=== PATIENT | male | born 1985 | race Hispanic/Latino ===

== ENCOUNTER 2019-08-21 12:37 | Emergency (ER) | payer OTHER, SELFPAY ==
[2019-08-21] VITALS (7 sets, daily range): BP systolic 125–159; BP diastolic 70–107; PULSE 60–83; RESP 15–17; TEMP 37.1; O2SAT 96–100
--- NOTE | ~2019-08-21 | CT_ITS ---
EXAMINATION: CT brain wo con DATE: 08/21/2019 13:43 INDICATION: Dizziness. Headache. TECHNIQUE: Computed tomography (CT) of the head was performed without intravenous contrast. The mA wa s adjusted according to patient size. Iterative reconstruction technique was employed. The dose-lengt h product was 681.00 mGy-cm. COMPARISON: None FINDINGS: There is no intracranial hemorrhage, acute infarction, or abnormal intracranial mass lesion . The ventricles are normal in size. The paranasal sinuses are clear. The mastoid air cells are jim l. The orbits are normal. IMPRESSION: 1. Normal brain. Reviewed, dictated and finalized at location A. IMPRESSION: 1. Normal brain.
--- NOTE | 2019-08-21 13:18 | ECG_ITS ---
Measurements Intervals [place] Rate: 66 P: 17 [place]: 177 QRS: 39 QRSD: 107 T: 16 QT: 385 QTc: 404 Interpretive Statements SINUS RHYTHM WITH SINUS ARRHYTHMIA BASELINE ARTIFACT- I, III, AVL NORMAL ECG Electronically Signed On 08-21-2019 13:28:29 CDT by Stephane Camargo D.O.
--- NOTE | 2019-08-21 13:22 | ED.DIZZY ---
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 Patient was breaking some large rocks at work today, bent over, and had onset of feeling dizzy and lightheaded. Patient describes spinning sensation and feeling as though his vision was off. Patient reports having an episode approximately a week ago, but not seek medical attention at that time. Patient noted the dizziness seemed worse with his eyes open and if he was standing or turning his head. Patient states if he is sitting still and has his eyes closed he has no symptoms. Patient does complain of an occipital headache. He denies any respiratory symptoms. He does report some nausea with the dizziness but denies any vomiting MD elicited complaint: dizziness Timing: sudden onset Description: sense of movement, room spinning and lightheadedness Context: change in body position and exertion History of similar symptoms: Yes Exacerbating factors: movement/ambulation, keeping eyes open, standing and other (Turning head) Relieving factors: remaining still, rest and keeping eyes closed Associated symptoms: nausea Related Data Allergies Allergy/AdvReac Type Severity Reaction Status Date / Time No Known Allergies Allergy Mild Verified 08/21/19 12:52 Review of Systems Review of Systems: All systems reviewed & are unremarkable except as noted in HPI and below Constitutional: Constitutional: Denies chills and Denies fever(s) Eyes: Eyes: Reports change in vision ENT: Reports vertigo, Reports dizziness, Denies ear discharge, Denies otalgia, Denies nasal congestion, Denies nasal discharge, Reports disequilibrium and Denies sore throat Cardiovascular: Cardiovascular: Denies chest pain Respiratory: Respiratory: Denies cough and Denies dyspnea Gastrointestinal: Gastrointestinal: Denies abdominal pain, Denies diarrhea, Reports nausea and Denies vomiting Neurologic: Reports dizziness, Denies syncope, Reports headache(s) and Denies focal weakness PMFSH Past Medical History Medical History (Updated 08/21/19 @ 15:59 by Dunia Diaz MD) No significant past medical history Surgical History Surgical History (Updated 08/21/19 @ 13:26 by Dunia Diaz MD) No history of previous surgery Social History Social History (Updated 08/21/19 @ 13:26 by Dunia Diaz MD) Smoking status: Never smoker Alcohol intake: current Exam Const: General: cooperative, no acute distress and alert Nutritional Appearance: obese Orientation/consciousness: patient oriented x3 Limitations: no limitations HENMT: Ears: TM's normal bilaterally and EAC's normal Mouth: Yes lip normal and Yes moist mucous membranes Eyes: Conjunctivae: conjunctivae normal Pupils: Equal, round and reactive pupils present EOM: EOMs intact bilaterally and Nystagmus present Resp: Effort & Inspection: normal respiratory effort Auscultation: clear to auscultation bilaterally Cardio: Rate: regular rate Rhythm: regular rhythm GI: GI Palp: Yes Soft to palpation and No Tenderness to palpation present (GI) Auscultation: normal bowel sounds Skin: General skin exam: normal color Neuro: General: patient oriented x3 and gait normal Cognition (Neuro): normal cognition Speech: normal speech Extrem: General: normal to inspection, full ROM and no clubbing, cyanosis or edema Psych: Mental Status: mental status grossly normal Affect: normal affect Attitude: cooperative Course Course Emergency Course: Patient feeling better after Zofran, meclizine, and IV fluids. Patient with unremarkable tests in the emergency department. Suspect labyrinthitis as c
[2019-08-21] MEDS: MECLIZINE HCL 25 MG TABLET PO (13:25)
[2019-08-21] MEDS: ONDANSETRON INJ 4 MG/2 ML VIAL IV PUSH (13:25)
[2019-08-21] MEDS: LACTATED RINGERS 1,000 ML 999 ML IV CONT (13:25)
[2019-08-21 13:34] LABS: Basophils Percent Auto 0.4 % (0.2-1.2); Eosinophils Absolute Auto 0.2 K/mm3 (0-0.3); Eosinophils Percent Auto 2.3 % (0-4.4); Hematocrit 46.9 % (42.0-52.0); Hemoglobin 16.2 g/dL (14.0-18.0); Immature Granulocyte Absolute 0.02 K/mm3 (0.00-0.031); Immature Granulocyte Percent A 0.2 % (0-0.5); Lymphocytes Absolute Auto 2.85 K/mm3 (0.9-3.2); Lymphocytes Percent Auto 34.1 % (18.3-44.2); Mean Corpuscular HGB Conc 34.5 g/dl (32-36); Mean Corpuscular Volume 89.7 fl (80-100); Mean Platelet Volume 10.9 fl (7.4-10.4); Monocytes Absolute Auto 0.6 K/mm3 (0.1-0.6); Monocytes Percent Auto 6.9 % (2.6-8.5); Neutrophils Absolute Auto 4.7 K/mm3 (1.3-6.7); Neutrophils Percent Auto 56.1 % (45.5-73.1); Platelet Count Result 184 k/mm3 (150-375); Red Blood Count 5.23 M/mm3 (4.6-6.20); Red Cell Distribution Width 11.7 % (11.5-14.5); White Blood Count 8.4 K/mm3 (4.5-10.0)
[2019-08-21 13:46] LABS: Add Urine Microscopic? YES; Appearance Urine Clear (Clear); Bilirubin Urine Negative (Negative); Blood Urine Negative (Negative); Color Urine Yellow (Yellow); Glucose Urine UA Negative (Negative); Ketones Urine Negative (Negative); Leukocyte Esterase Ur Negative LEU/UL (Negative); Nitrate Urine Negative (Negative); Protein Urine Negative (Negative); RBC Urine 0-2 /hpf (0-2); Urobilinogen Urine Negative mg/dL (<2.0); WBC Urine 0-3 /hpf
[2019-08-21 13:48] LABS: Alanine Aminotransferase 187 U/L (4-50); Albumin Level 5.2 g/dL (3.5-5.1); Alkaline Phosphatase 69 U/L (38-126); Aspartate Amino Transferase 123 U/L (17-59); Bilirubin,Total 0.9 mg/dL (0.2-1.3); Blood Urea Nitrogen 17 mg/dL (9-20); Carbon Dioxide 24 mmol/L (22-30); Chloride 104 mmol/L (98-107); Estimated Glomerular Filt Rate > 60; Glucose 100 mg/dL (75-110); Potassium 4.2 mmol/L (3.4-5.0); Sodium 139 mmol/L (137-145)
== END 2019-08-21 17:11 | disposition home or self-care (01) ==
PROVIDERS: Emergency Provider Emergency Medicine
DX: R42 Dizziness and giddiness (principal)
CPT/HCPCS: 36415; 70450; 80053; 81001; 85025; 93005; 96361; 96374; 99284; A9270; J2405; J7120